=== PATIENT | female | born 1950 | race Caucasian/White ===

== ENCOUNTER 2016-09-04 08:00 | Outpatient (CLI) | payer MEDICARE | END 2016-09-04 08:01 | disposition home or self-care (01) | DX: R73.01 Impaired fasting glucose (principal); E78.5 Hyperlipidemia, unspecified ==

== ENCOUNTER 2016-12-02 17:06 | Outpatient (CLI) | payer MEDICARE ==
--- NOTE | 2016-12-03 09:50 | Ultrasound Report ---
LIMITED AORTA DUPLEX: 12/02/2016 CLINICAL INDICATION: Aneurysm. COMPARISON: CT 03/31/2016. TECHNIQUE: Real-time sonographic vascular imaging was performed by the green chain offbearer through the aorta utilizing both color-flow and Doppler spectral analysis. Multiple loss prevention representative static images were saved for review. FINDINGS: The abdominal aorta measures 2.3 cm proximally, and 1.9 cm in the mid portion. Distal ane urysmal dilatation is present, measuring 3.5 x 3.2 cm, slightly increased from CT of 03/31/2016. No free fluid is present. Velocities are normal. IMPRESSION: SLIGHT INTERVAL INCREASE IN SIZE OF DISTAL ABDOMINAL AORTIC ANEURYSM, NOW MEASURING 3.5 X 3.2 CM. JOB #: [id number] EXT JOB #:[id number]
== END 2016-12-02 17:07 | disposition home or self-care (01) ==
LOC: DI 17:06
PROVIDERS: ATTEND Family Medicine
DX: I71.4 Abdominal aortic aneurysm, without rupture (principal)
CPT/HCPCS: 93979

== ENCOUNTER 2016-12-05 13:11 | Outpatient (CLI) | payer MEDICARE ==
--- NOTE | 2016-12-05 17:04 | Ultrasound Report ---
EXAM: BILATERAL LOWER EXTREMITY VENOUS ULTRASOUND EXAM DATE: 12/05/2016 02:54 p.m. CLINICAL HISTORY: Dependent edema, legs bilateral, calf pain. COMPARISON: 12/03/2012. TECHNIQUE: Real-time sonographic vascular imaging was performed by the bi tester through the lower extremities utilizing both color-flow and Doppler spectral analysis. Multiple software support representative static i mages were saved for review. FINDINGS: Right: Common Femoral Vein (CFV): Normal. CFV-GSV Junction: Normal. Profunda Femoral Vein (PFV): Normal. Femoral Vein (FV) Prox: Normal. Femoral Vein (FV) Mid: Normal. Femoral Vein (FV) Dist: Normal. Popliteal Vein: Normal. Posterior Tibial Veins: Normal. Peroneal Veins: Normal. Left: Common Femoral Vein (CFV): Normal. CFV-GSV Junction: Normal. Profunda Femoral Vein (PFV): Normal. Femoral Vein (FV) Prox: Normal. Femoral Vein (FV) Mid: Normal. Femoral Vein (FV) Dist: Normal. Popliteal Vein: Normal. Posterior Tibial Veins: Normal. Peroneal Veins: Normal. Other: None. IMPRESSION: No evidence for lower extremity deep venous thrombosis bilaterally. [facility] Referring Provider Line: [phone] SITE ID: [id number]
== END 2016-12-05 13:12 | disposition home or self-care (01) ==
LOC: DI 13:11
PROVIDERS: ATTEND Family Medicine
DX: R60.0 Localized edema (principal); M79.661 Pain in right lower leg
CPT/HCPCS: 93970

== ENCOUNTER 2017-07-30 08:00 | Outpatient (CLI) | payer MEDICARE ==
[2017-07-30 19:07] LABS: BASOPHILS % (AUTO) 0.3 %; EOSINOPHILS # (AUTO) 0.3 10^3/uL (0.0-0.7); EOSINOPHILS % (AUTO) 2.7 %; HGB - HEMOGLOBIN 14.6 g/dL (12.0-16.0); LYMPHOCYTES # (AUTO) 3.5 10^3/uL (1.5-3.5); LYMPHOCYTES % (AUTO) 31.9 %; MEAN CORPUSCULAR HEMOGLOBIN 29.8 pg (27.0-31.0); MEAN CORPUSCULAR HGB CONC 32.9 g/dL (32.0-36.0); MEAN CORPUSCULAR VOLUME 90.6 fL (81.0-99.0); MEAN PLATELET VOLUME 8.9 fL (7.9-10.8); MONOCYTES # (AUTO) 0.6 10^3/uL (0.0-1.0); MONOCYTES % (AUTO) 5.9 %; NEUTROPHILS # (AUTO) 6.4 10^3/uL (1.5-6.6); NEUTROPHILS % (AUTO) 59.2 %; PLT - PLATELET COUNT 243 10^3/uL (130-450); RED CELL DISTRIBUTION WIDTH 14.7 % (12.0-15.0); WHITE BLOOD COUNT 10.8 x10^3/uL (4.8-10.8)
[2017-07-30 19:29] LABS: ALBUMIN 4.1 g/dL (3.2-5.5); ALBUMIN/GLOBULIN RATIO 1.3 (1.0-2.2); ALKALINE PHOSPHATASE 62 IU/L (42-121); ALT ALANINE AMINOTRANSFERASE 14 IU/L (10-60); AST ASPARTATE AMINOTRANSFERASE 20 IU/L (10-42); BILIRUBIN,TOTAL 0.4 mg/dL (0.2-1.0); BUN - BLOOD UREA NITROGEN 15 mg/dL (6-20); CALCIUM 8.9 mg/dL (8.5-10.3); CARBON DIOXIDE - CO2 23 mmol/L (21-32); CHLORIDE 105 mmol/L (101-111); CHOL/HDL RATIO 6.5 (<4.4); CHOLESTEROL 293 mg/dL; CREATININE 0.7 mg/dL (0.4-1.0); GFR - MDRD 84 (>89); GLUCOSE 119 mg/dL (70-100); HDL CHOLESTEROL 45 mg/dL; LDL CHOLESTEROL,CALCULATED 172 mg/dL; LDL/HDL RATIO 3.8 (<4.4); SODIUM 138 mmol/L (135-145); TOTAL PROTEIN 7.3 g/dL (6.7-8.2); VLDL CHOLESTEROL 76 mg/dL
[2017-07-30 20:14] LABS: HB2 TOTAL 16.1 g/dL; HEMOGLOBIN A1C 0.68 g/dL
== END 2017-07-30 08:01 | disposition home or self-care (01) ==
LOC: LAB.N 08:00
PROVIDERS: ATTEND Family Medicine
DX: F33.0 Major depressive disorder, recurrent, mild (principal); R73.01 Impaired fasting glucose; E78.1 Pure hyperglyceridemia
CPT/HCPCS: 36415; 80053; 80061; 83036; 83721; 85025

== ENCOUNTER 2017-12-22 18:46 | Outpatient (CLI) | payer MEDICARE ==
--- NOTE | 2017-12-23 10:41 | Ultrasound Report ---
Procedure Date: 12/22/2017 Accession Number: [id number] / [id number] Procedure: US - Duplex Aorta Limited CPT Code: FULL RESULT: EXAM: Duplex Aorta Limited DATE: 12/22/2017 7:22 PM CLINICAL HISTORY: ABDOMINAL AORTIC ANEURYSM,WITHOUT RUPTURE COMPARISON: None. TECHNIQUE: Grayscale, spectral Doppler, and color Doppler images of the abdominal aorta were obtained. FINDINGS: The upper abdominal aorta measures up to 2.8 cm, normal. Normal arterial waveform is seen in the abdominal aorta by spectral Doppler which is also patent by color Doppler. Peak systolic velocity by spectral Doppler is 113 cm/s in the mid aorta. The mid aorta measures up to 2.7 cm in transverse dimension by 2 cm in AP dimension. The previously identified fusiform infrarenal aortic aneurysm without involvement of the iliac arteries now measures 3.3 x 3.3 cm (previously 3.5 x 3.2 cm), unchanged when accounting for differences in technique. The right and left iliac arteries measure up to 0.6 and 0.7 cm in AP dimension respectively, normal. IMPRESSION: Stable infrarenal aortic aneurysm measuring up to 3.3 cm on today's exam. [facility]
== END 2017-12-22 18:47 | disposition home or self-care (01) ==
LOC: DI 18:46
PROVIDERS: ATTEND Family Medicine
DX: I71.4 Abdominal aortic aneurysm, without rupture (principal)
CPT/HCPCS: 93979

== ENCOUNTER 2018-03-29 14:38 | Outpatient (CLI) | payer MEDICARE ==
--- NOTE | 2018-03-30 12:28 | XRAY Report ---
Reason: lumbago Procedure Date: 03/29/2018 Accession Number: [id number] / [id number] Procedure: XRN - Lumbar Spine 2 View CPT Code: FULL RESULT: EXAM: LUMBOSACRAL SPINE RADIOGRAPHY EXAM DATE: 03/29/2018 03:02 PM. CLINICAL HISTORY: Lumbago. COMPARISONS: LUMBAR SPINE 09/28/2008 1:44 PM LUMBAR SPINE 09/04/2008 12:55 PM. TECHNIQUE: 3 views. FINDINGS: Alignment: There is mild dextroconvex scoliosis centered about L3. There are 2 mm of anterolisthesis of L3 on L4. Bones: Five dsw-kxj-qwezdci lumbar vertebral bodies are present. No fractures or bone lesions. Disks: Normal. Disk heights are maintained. Facets: At least moderate facet arthropathy is seen from L2-L5. Sacroiliac Joints: Unremarkable. Soft Tissues: Normal. The visualized bowel gas pattern is normal. IMPRESSION: Facet predominant arthropathy and mild scoliosis as described. Accounting for differences in modality, degenerative changes have progressed compared to 2008. [facility]
== END 2018-03-29 14:39 | disposition home or self-care (01) ==
LOC: DI.N 14:38
PROVIDERS: ATTEND Family Medicine
DX: M47.816 Spondylosis without myelopathy or radiculopathy, lumbar region (principal); M41.86 Other forms of scoliosis, lumbar region
CPT/HCPCS: 72100

== ENCOUNTER 2018-05-30 13:11 | Outpatient (CLI) | payer MEDICARE ==
--- NOTE | 2018-05-30 14:30 | XRAY Report ---
Reason: KNEE PAIN, RIGHT Procedure Date: 05/30/2018 Accession Number: [id number] / [id number] Procedure: XR - Knee 3 View RT CPT Code: FULL RESULT: EXAM: RIGHT KNEE RADIOGRAPHY EXAM DATE: 05/30/2018 01:29 PM. CLINICAL HISTORY: Right knee pain. COMPARISON: None. TECHNIQUE: 3 views. FINDINGS: There are remote posttraumatic changes with resulting tricompartmental degenerative changes, most pronounced in the lateral femorotibial compartments. There is no significant joint effusion. No fracture or dislocation is identified. IMPRESSION: Chronic degenerative changes, posttraumatic in appearance. [facility]
== END 2018-05-30 13:12 | disposition home or self-care (01) ==
LOC: DI 13:11
PROVIDERS: ATTEND Family Medicine
DX: M17.31 Unilateral post-traumatic osteoarthritis, right knee (principal)

== ENCOUNTER 2018-10-24 14:28 | Outpatient (CLI) | payer MEDICARE | END 2018-10-24 14:29 | disposition critical access hospital (66) | LOC: EMS 14:28 | PROVIDERS: ATTEND Surgery | DX: M25.522 Pain in left elbow (principal); W01.0XXA Fall on same level from slipping, tripping and stumbling without subsequent striking against object, initial encounter; Y93.01 Activity, walking, marching and hiking; Y92.481 Parking lot as the place of occurrence of the external cause | CPT/HCPCS: A0425; A0429 ==

== ENCOUNTER 2018-10-24 14:45 | Emergency (ER) | payer MEDICARE ==
[2018-10-24 14:51] VITALS: BP 142/70
--- NOTE | 2018-10-24 14:52 | ED Physician Documentation ---
PD HPI Fall - Stated complaint Stated Complaint: GLF - History obtained from History obtained from: Patient - History of Present Illness Mechanism of injury: Lost balance Fall distance: Standing position Where injury occurred: Other (Parking lot of [facility]) Timing - onset: Today (Just prior to arrival) Injury(ies) location: Left Uppper Extremity (Elbow) Pain level now: 10 Associated symptoms: No: LOC, Neck pain Symptoms improve with: Nothing Similar symptoms before: Has not had sx before Recently seen: Not recently seen - Additional information Additional information: Patient was getting into her car at [facility] when she lost her balance and fell landing on the left elbow. She hit her head but she did not pass out. There is no open injury. She landed on her left hip but she does not have any significant hip pain when ambulating. No prior injury to the elbow. No numbness or tingling down into the fingers. 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 - Present Medications Home Medications: Ambulatory Orders Medication Instructions Recorded Confirmed Atorvastatin [Lipitor] 40 mg PO QPM 03/31/16 04/01/16 Calcium Carbonate [Calcium] 500 mg PO DAILY 04/01/16 04/01/16 Cholecalciferol (Vitamin D3) 1,000 units PO DAILY 04/01/16 04/01/16 [Vitamin D3] Pantoprazole [Protonix] 40 mg PO BID #60 tablet 04/01/16 Sucralfate 1 gm PO ACHS #120 tablet 04/01/16 Oxycodone HCl/Acetaminophen 1 each PO Q4HR #20 tablet 10/24/18 [Oxycodone-Acetaminophen 5-325] - Allergies Allergies/Adverse Reactions: Allergies Allergy/AdvReac Type Severity Reaction Status Date / Time codeine [Codeine] Allergy Hives Verified 10/24/18 14:51 - Social History Does the pt smoke?: Yes Smoking Status: Former smoker Does the pt drink ETOH?: No Does the pt have substance abuse?: No PD ED PE NORMAL - Vitals Vital signs reviewed: Yes - General General: Alert and oriented X 3, No acute distress, Well developed/nourished - Cardiac Cardiac: RRR - Respiratory Respiratory: No respiratory distress - Extremities Extremities: Other (The left elbow is in a vacuum splint per EMS. This was removed. There is no open wound but there is some bruising over the proximal forearm. She has a 2+ radial pulse she is able to wiggle her fingers sensations intact light touch and capillary refill is less than 2 seconds. 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 This was discussed with the orthopedist. She will be placed in a long-arm posterior splint and referred to his office for further management. She was given an oxycodone tablet here for pain. Will be discharged with a prescription for oxycodone, splint instructions, plans for elevate and ice until follow-up with the orthopedist. Departure - Departure Disposition: 01 Home, Self Care Clinical Impression: Radial head fracture, closed Qualifiers: Encounter type: initial encounter Fracture alignment: displaced Laterality: left Qualified Code(s): S52.122A - Displaced fracture of head of left radius, initial encounter for closed fracture Condition: Good Instructions: ED Fx Radial Head, ED Splint Care Fiberglass Follow-Up: Calderon Reed MD [Provider Admit Priv/Credential] - Within 3 Days (Keep the appointment as scheduled for follow-up.) Prescriptions: Oxycodone HCl/Acetaminophen [Oxycodone-Acetaminophen 5-325] 1 each PO Q4HR #20 tablet Comments: Keep the splint on, keep it clean and dry. May ice the elbow through the splint just do not get it wet. Take the oxycodone if needed for pain but do not drive or operate machinery if taking that medication. Return if you have numbness, increasing pain into the fingers, delayed capillary refill or other problems arise. Keep the appointment with the orthopedist that was scheduled for you.
[2018-10-24] MEDS ORDERED: oxyCODONE 5 MG TABLET PO STA (14:58)
--- NOTE | 2018-10-24 16:04 | XRAY Report ---
Reason: fall,pain Procedure Date: 10/24/2018 Accession Number: [id number] / [id number] Procedure: XR - Elbow 3 View LT CPT Code: FULL RESULT: EXAM: LEFT ELBOW RADIOGRAPHY EXAM DATE: 10/24/2018 03:01 PM. CLINICAL HISTORY: Ground level fall on elbow, pain. Limited range of motion. COMPARISON: XR ELBOW COMPLETE 11/30/2007 10:41 AM. TECHNIQUE: 3 views. FINDINGS: The study is limited by inability to obtain conventional positioning. Bones: There is a comminuted fracture of the radial head. No definite other fracture pattern was identified; sensitivity is somewhat limited. Joints: There is an expected joint effusion. Soft Tissues: Normal. No soft tissue swelling. IMPRESSION: Comminuted radial head fracture. CRITICAL RESULT: The findings were discussed with Dr. Yang on 10/24/2018 at approximally 4 PM. [facility]
== END 2018-10-24 18:00 | disposition home or self-care (01) ==
LOC: EDUNIT# → ED 14:45
DX: S52.122A Displaced fracture of head of left radius, initial encounter for closed fracture (principal); W18.39XA Other fall on same level, initial encounter; Y93.89 Activity, other specified; Y92.512 Supermarket, store or market as the place of occurrence of the external cause; Y92.481 Parking lot as the place of occurrence of the external cause; E11.9 Type 2 diabetes mellitus without complications; Z87.891 Personal history of nicotine dependence
CPT/HCPCS: 73080; 99283; A9270

== ENCOUNTER 2018-10-31 14:19 | Outpatient (CLI) | payer MEDICARE | END 2018-10-31 23:59 | disposition home or self-care (01) | LOC: RT.N 14:19 | PROVIDERS: ATTEND Physician Assistant Medical | DX: Z01.810 Encounter for preprocedural cardiovascular examination (principal) | CPT/HCPCS: 93005 ==

== ENCOUNTER 2018-11-02 08:00 | Outpatient (CLI) | payer MEDICARE ==
[2018-11-02 19:00] LABS: BASOPHILS # (AUTO) 0.1 10^3/uL (0.0-0.1); BASOPHILS % (AUTO) 0.5 %; EOSINOPHILS # (AUTO) 0.3 10^3/uL (0.0-0.7); EOSINOPHILS % (AUTO) 2.6 %; HGB - HEMOGLOBIN 13.7 g/dL (12.0-16.0); LYMPHOCYTES # (AUTO) 3.5 10^3/uL (1.5-3.5); LYMPHOCYTES % (AUTO) 29.3 %; MEAN CORPUSCULAR HEMOGLOBIN 29.4 pg (27.0-31.0); MEAN CORPUSCULAR HGB CONC 32.3 g/dL (32.0-36.0); MEAN PLATELET VOLUME 9.3 fL (7.9-10.8); MONOCYTES # (AUTO) 0.9 10^3/uL (0.0-1.0); MONOCYTES % (AUTO) 7.1 %; NEUTROPHILS # (AUTO) 7.3 10^3/uL (1.5-6.6); NEUTROPHILS % (AUTO) 60.5 %; PLT - PLATELET COUNT 265 10^3/uL (130-450); RED BLOOD COUNT 4.68 10^6/uL (4.20-5.40); RED CELL DISTRIBUTION WIDTH 14.6 % (12.0-15.0)
[2018-11-02 19:04] LABS: CALCIUM 8.8 mg/dL (8.5-10.3); CREATININE 0.6 mg/dL (0.4-1.0)
== END 2018-11-02 23:59 | disposition home or self-care (01) ==
LOC: LAB.N 08:00
PROVIDERS: ATTEND Physician Assistant Medical
DX: E78.2 Mixed hyperlipidemia (principal); Z01.818 Encounter for other preprocedural examination; E66.9 Obesity, unspecified; I71.4 Abdominal aortic aneurysm, without rupture
CPT/HCPCS: 36415; 80048; 85025

== ENCOUNTER 2018-11-03 10:46 | Outpatient (CLI) | payer MEDICARE ==
--- NOTE | 2018-11-03 12:01 | CT Report ---
Reason: DISPLACED FRACTURE OF HEAD OF LEFT RADIUS,INITIAL Procedure Date: 11/03/2018 Accession Number: [id number] / [id number] Procedure: CT - UPPER EXTREMITY WO - LT CPT Code: FULL RESULT: EXAM: LEFT ELBOW CT WITHOUT CONTRAST EXAM DATE: 11/03/2018 11:28 AM. CLINICAL HISTORY: Follow-up complex left radial head fracture. COMPARISON: ELBOW 3 VIEW LT 10/27/2018 2:25 PM. TECHNIQUE: Thin-section axial images were acquired of the elbow without contrast. Post-processing: Coronal and sagittal reformats. Other: None. In accordance with CT protocol optimization, one or more of the following dose reduction techniques were utilized for this exam: automated exposure control, adjustment of mA and/or KV based on patient size, or use of iterative reconstructive technique. FINDINGS: Bones: There is a small minimally displaced avulsion fracture from the coronoid process of the proximal ulna seen best on sagittal MPR images, for example image 31. Otherwise no evidence of ulnar fracture. The primary finding is a markedly comminuted fracture of the radial head with impaction at the fracture site. There is an approximate 20 mm maximal diameter avulsed fragment displaced superiorly from the radial head seen best on sagittal MPR images. On coronal image 145 and sagittal image 36, there is a small sliver of bony fragment in the superior posterior joint space, probably representing loose intra-articular bone fragment from the radial head fracture. Joints: See above Musculature: Normal. No fatty atrophy. Other: None. IMPRESSION: 1. Severely comminuted, depressed and impacted fracture of the radial head. There is a dominant 20 mm maximal diameter posterior avulsed fragment as described above. 2. Minimally displaced ulnar coronoid process avulsion fracture. 3. Small sliver of presumed intra-articular bone fragment in the posterior superior joint space. [facility]
== END 2018-11-03 10:47 | disposition home or self-care (01) ==
LOC: DI 10:46
PROVIDERS: ATTEND Orthopaedic Surgery Sports Medicine
DX: S52.122A Displaced fracture of head of left radius, initial encounter for closed fracture (principal); S52.042A Displaced fracture of coronoid process of left ulna, initial encounter for closed fracture

== ENCOUNTER 2018-11-09 07:21 | Day surgery (SDC) | payer MEDICARE ==
[2018-11-09] MEDS ORDERED: LACTATED RINGERS 1,000 ML IV ONE ×2 (07:35→11:59)
[2018-11-09] MEDS ORDERED: fentaNYL 100 MCG/2 ML VIAL IVP ONE (07:50)
[2018-11-09] MEDS ORDERED: PROPOFOL 200 MG/20 ML VIAL IVP ONE (07:50)
[2018-11-09] MEDS ORDERED: GLYCOPYRROLATE 1 MG/5 ML VIAL IVP ONE (07:50)
[2018-11-09] MEDS ORDERED: ROCURONIUM 50 MG/5 ML VIAL IVP ONE (07:50)
[2018-11-09] MEDS ORDERED: ROPIVACAINE 0.5% PF 20 ML AMPULE EP ONE (07:50)
[2018-11-09] MEDS ORDERED: DEXAMETHASONE 4 MG/ML VIAL IVP ONE (07:50)
[2018-11-09] MEDS ORDERED: ONDANSETRON 4 MG/2 ML VIAL IVP ONE (07:50)
[2018-11-09] MEDS ORDERED: KETOROLAC 30 MG/ML VIAL IVP ONE (07:50)
[2018-11-09] MEDS ORDERED: MIDAZOLAM 2 MG/2 ML VIAL IVP ONE (07:50)
[2018-11-09] MEDS ORDERED: NEOSTIGMINE 1 MG/1 ML 10 ML MDV IVP ONE (07:50)
--- NOTE | 2018-11-09 08:08 | ANESTHESIA ---
Pre-Anesthesia VS, & Labs - Diagnosis L radial head and coronid fx - Procedure L ORIF Radial head vs replacement, poss Coronoid ORIF, poss ligament repair Vital Signs: Temp Pulse Resp BP Pulse Ox 36.9 C 84 16 135/70 H 96 11/09/18 07:35 11/09/18 07:35 11/09/18 07:35 11/09/18 07:35 11/09/18 07:35 Height 5 ft 5 in Weight (kg) 122.9 kg Body Mass Index 46.5 - NPO >8 hours - Is Patient ?: No - Lab Results Lab results reviewed: Yes Home Medications and Allergies Home Medications: Ambulatory Orders Venlafaxine HCl [Venlafaxine HCl ER] 150 mg PO DAILY 11/08/18 Atorvastatin [Lipitor] 40 mg PO QPM 03/31/16 Venlafaxine HCl [Venlafaxine HCl ER] 150 mg PO DAILY 11/08/18 Allergies/Adverse Reactions: Allergies Allergy/AdvReac Type Severity Reaction Status Date / Time codeine [Codeine] Allergy Hives Verified 10/24/18 14:51 Anes History & Medical History - Anesthetic History Anesthesia Complications: reports: No previous complications Family history of Anesthesia Complications: Denies Family history of Malignant Hyperthermia: Denies - Medical History Cardiovascular: reports: High cholesterol, Deep vein thrombosis, Other Pulmonary: reports: None Gastrointestinal: reports: Ulcers Urinary: reports: None Musculoskeletal: reports: Osteoarthritis Endocrine/Autoimmune: reports: None Blood Disorders: reports: None Skin: reports: None Smoking Status: Former smoker - Surgical History General: Bowel surgery, Gastric surgery, Colonoscopy Eyes Ears Nose Throat (EENT): Tonsil/Adenoidectomy Gynecologic: Hysterectomy Orthopedic: Spine surgery Exam General: Alert, Oriented x3 Dental: Loose/Frag Mouth Openin Fingerbreadth Neck Mobility: Normal Mallampati classification: II Thyromental Distance: 4-6 cm Respiratory: Lungs clear, Normal breath sounds Cardiovascular: Regular rate Neurological: Normal speech Mental/Cognitive Status: Alert/Oriented X3, Normal for patient Cognitive Status: Within normal limits Plan Anesthesia Type: General, Supraclavicular Block (possible) Regional Block: Per Surgeon's request for Post Op pain control (will discuss pre-op) Consent for Procedure(s) Verified and Reviewed: Yes Code Status: Attempt Resuscitation ASA classification: 2-Mild systemic disease Is this case an emergency?: No
[2018-11-09] MEDS ORDERED: CEFAZOLIN SODIUM IN 0.9 % NACL 2 GM/100 ML BAG IV ONE (08:22)
[2018-11-09] MEDS ORDERED: ONDANSETRON 4 MG/2 ML VIAL IVP PRN (11:32)
[2018-11-09] MEDS ORDERED: oxyCODONE 5 MG TABLET PO PRN (11:32)
--- NOTE | 2018-11-09 11:39 | IMMEDIATE POSTOPERATIVE NOTE ---
Immediate Postoperative Note - Procedure Note Procedure Date: 11/09/18 Pre-Op Diagnosis: Left radial head fracture, coronoid fracture, ligament sprain Procedure: Left radial head replacement, removal loose bodies osteocartilaginous Post-Op Diagnosis: Same Primary Surgeon: Polo Reed Back Hand: None Anesthesia Type: General LMA, Regional block Complications: No complications Estimated Blood Loss (in cc): 25 Plan of Care: Left upper extremity remains in splint clean dry and intact in sling. Elbow elevated at rest. Encouraged hand and wrist motion. Nonweightbearing left upper extremity. Perioperative antibiotic 24 hours. Preoperative analgesic medication and [id number] stool softener as needed. Follow-up 10 to 14 days or sooner as needed orthopedic clinic.
[2018-11-09 12:53] VITALS: BP 120/64
--- NOTE | 2018-11-09 14:25 | XRAY Report ---
Reason: ORIF LEFTRADIAL HEAD FRACUTE AND CORNOID FRACTURE Procedure Date: 11/09/2018 Accession Number: [id number] / [id number] Procedure: FL - OR C-Arm Procedure CPT Code: FULL RESULT: EXAM: FLUOROSCOPIC GUIDANCE EXAM DATE: 11/09/2018 10:52 AM. CLINICAL HISTORY: ORIF left radial head fracture and cornoid fracture. COMPARISON: OR C-ARM PROCEDURE 11/09/2018 10:27 AM. ELBOW 3 VIEW LT 11/09/2018 10:27 AM. FINDINGS: What appears to be a radial hemiarthroplasty prosthesis is seen on 5 fluoroscopic capture images inserted into the proximal shaft of the radius. IMPRESSION: Fluoroscopic guidance provided for elbow arthroplasty. Total fluoroscopy time: 0.3 minutes. Number of images: 6. [facility]
--- NOTE | 2018-11-09 14:25 | XRAY Report ---
Reason: ORIF LEFT ELBOW IMPLANTS Procedure Date: 11/09/2018 Accession Number: [id number] / [id number] Procedure: XR - Elbow 3 View LT CPT Code: FULL RESULT: EXAM: FLUOROSCOPIC GUIDANCE EXAM DATE: 11/09/2018 10:52 AM. CLINICAL HISTORY: ORIF left radial head fracture and cornoid fracture. COMPARISON: OR C-ARM PROCEDURE 11/09/2018 10:27 AM. ELBOW 3 VIEW LT 11/09/2018 10:27 AM. FINDINGS: What appears to be a radial hemiarthroplasty prosthesis is seen on 5 fluoroscopic capture images inserted into the proximal shaft of the radius. IMPRESSION: Fluoroscopic guidance provided for elbow arthroplasty. Total fluoroscopy time: 0.3 minutes. Number of images: 6. [facility]
--- NOTE | 2018-11-10 08:09 | OPERATIVE REPORT ---
DATE OF SERVICE: 11/09/2018 Physician: Calderon Reed MD SURGEON: Calderon Reed MD ANESTHESIA PROVIDER: Fidel Collado CRNA. ANESTHESIA: Left side regional block under ultrasound guidance as well as general anesthesia. FLUIDS: Please see nursing report. TOURNIQUET TIME: 115 minutes at 250 mmHg. ESTIMATED BLOOD LOSS: Less than 25 mL COMPRESSION DEVICE: Bilateral calf SCD boots. PREOPERATIVE ANTIBIOTICS: Weight-based IV Ancef 2 grams. ORTHOPEDIC IMPLANTS: Biomet radial head implants including size 8 stem, size 22 x 10 radial head with associated screw. PREOPERATIVE DIAGNOSES 1. Left comminuted radial head fracture. 2. Left elbow coronoid fracture. 3. Left elbow ligamentous sprain. POSTOPERATIVE DIAGNOSES 1. Left comminuted radial head fracture. 2. Left elbow coronoid fracture. 3. Left elbow ligamentous sprain. HISTORY OF PRESENT ILLNESS AND INDICATIONS: Patient is a 68-year-old female who sustained an injury to her left elbow and was indicated for operative treatment. Please see previous clinic discussion for risks, benefits and alternatives reviewed. We highlighted risks, benefits, alternatives in the preoperative care unit. Her questions are answered. She verbalizes her wish to proceed with operative treatment. Informed consent is again given. INTRAOPERATIVE FINDINGS: Patient was noted to have a comminuted radial head fracture, not amenable to repair with greater than 3 pieces. There is significant comminution and deformity. The lateral ligamentous complex remains attached. The coronoid fracture is noted to be nearly anatomically reduced under direct visualization. Post-implantation and trialing with the final size, the elbow shows extension to 180 degrees, flexion greater than 130, with pronation and supination 80 to 90 degrees with smooth range of motion and location of the radial head. There is no significant noted varus or valgus instability. Intraoperative radiographic findings comparing size 20 versus size 22 head show that the contour of the smaller head does not line up with the capitellum, and it appears somewhat more ulnarly positioned secondary to the decreased size, it shows same range of motion. PROCEDURE: On 11/09/2018, patient is identified in the preoperative care unit. She identifies her left elbow as the operative site. The area is signed. Patient received preoperative weight-based IV antibiotics. She is brought to the operating room. General anesthesia is administered after previous ultrasound-guided left upper extremity regional block. The patient is placed supine on the operating table. Head and neck and extremities are placed in anatomically comfortable and safe positions to avoid peripheral nerve stretch and compression. Patient's left upper extremity then has a well-padded tourniquet placed high on the left arm. Patient's left elbow is shaved and then pre-scrubbed with Hibiclens solution followed by alcohol, and then prepped with ChloraPrep solution and draped appropriately. At this point, surgical pause identified the left elbow as the operative site. At this point, an Esmarch bandage was used to exsanguinate the limb and then an anterolateral approach was used. Skin incision is made, spreading dissection carried out to the extensor musculature, interval is identified and split, and the extensor musculature is from the underlying ligamentous structures. The posterolateral structures were left intact as they remained attached to the lateral epicondyle. At this point, once the annular ligament is identified and the forearm is pronated to avoid injury to adjacent nerve structures, the annular ligament is tagged and then incised, thereby further revealing the joint and the comminuted radial head fracture. At this point, the radial head fracture fragments are identified and noted to be not amenable to repair, given the small comminuted pieces. There were 3 major pieces, then multiple intervening smaller pieces. These were reconstructed at the back table and sized, loose bodies are removed under direct visualization in the joint. The capitellum is identified and noted to have minimal cartilage injury. Coronoid process is noted to be nearly anatomically reduced from this vantage point, and there was concentric ulnohumeral articulation. At this point, the elbow is extended, as there is expected to be posterior comminuted piece. This area is copiously irrigated and examined and reexamined and noted to be free of any loose bodies under some direct visualization, as well as palpation after multiple rounds of copious irrigation. At this point, the height of the removed head fragments are measured, and the proximal aspect of the radius is rongeured to make this flat and have the appropriate resection, which ultimately is approximately 14. Please see further discussion regarding resection and seating of implant. At this point, the joint is copiously irrigated, trial implants are placed, and it is noted that the 22 x 10 is appropriate; it is noted that the size 8 sits approximately 1-2 mm proud as the size 8 brotyesha previously worked up to from a small size seated about 2 mm proud. The 7 mm broach was not found to be adequate, or with appropriate purchase. After selection of these implants, the wound is copiously irrigated, reexamined, and noted to be free of loose bodies, at which point the final stem is impacted into place. It is seated nicely and has good control of the radius, and then the head is placed, and the fixation screw is attached per protocol. The joint is reduced and examined and noted to have good range of motion and stability. Please see operative findings. Of note, the radial head sits nicely in the proximal radial ulnar joint, it does not appear to be overstuffed. The stem sits about 1 to 2 mm proud as expected and has good fixation. After repeat copious irrigation, the annular ligament is repaired using heavy Vicryl suture, as is the [id number] split adjacent to this. Again, care is taken to pronate the forearm during this portion. At this point, the extensor mechanism is closed using #2 FiberWire suture, and the elbow is again ranged and noted to be with good range of motion and stability. At this point, the wound is copiously irrigated again and the skin is closed in layered fashion using 0 Vicryl, 2-0 Vicryl, and interrupted nylon suture. Skin is washed, dried, Xeroform dressing is applied. Dry sterile dressing is applied. Sof-Rol is applied. Patient is placed in a posterior plaster splint at 90 degrees with the forearm in neutral with a side slab. Patient is placed in a sling. Patient tolerated the procedure well. Instrument and sponge counts were correct. Patient is transferred to recovery room in stable condition. Patient will follow postoperative radial head replacement protocol. She would be nonweightbearing on the left upper extremity, she would be in a splint. She will follow up in 10 to 14 days, or sooner on an as-needed basis. She would avoid weightbearing resistance and exertion. She would elevate and ice at rest. She would work on wrist and hand motion. She is given a prescription for perioperative antibiotics, perioperative analgesia medications. She is encouraged to take bowel regimen medication while on narcotic analgesics. She will notify us prior to followup visit should problems or questions arise. Patient declined offer to discuss with family her friend, though a friend grease rack worker was to pick her up and bring her home from the hospital. PROCEDURES 1. Left radial head replacement. 2. Left elbow removal of loose bodies. TD: 11/10/2018 07:34 KERRY
== END 2018-11-09 07:22 | disposition home or self-care (01) ==
LOC: SDS 07:21
PROVIDERS: ATTEND Orthopaedic Surgery Sports Medicine
PROC: 0PRJ0JZ Replacement of Left Radius with Synthetic Substitute, Open Approach (ICD-10-PCS; principal; 2018-11-09 08:30)
DX: S52.122D Displaced fracture of head of left radius, subsequent encounter for closed fracture with routine healing (principal); S52.042D Displaced fracture of coronoid process of left ulna, subsequent encounter for closed fracture with routine healing; X58.XXXD Exposure to other specified factors, subsequent encounter; E78.00 Pure hypercholesterolemia, unspecified; M19.90 Unspecified osteoarthritis, unspecified site; E66.9 Obesity, unspecified; Z68.42 Body mass index [BMI] 45.0-49.9, adult; Z87.891 Personal history of nicotine dependence; Z86.718 Personal history of other venous thrombosis and embolism
CPT/HCPCS: 24366; 73080; C1776; J0690; J7120

== ENCOUNTER 2019-03-02 09:18 | Outpatient (CLI) | payer MEDICARE, MEDICAID ==
--- NOTE | 2019-03-03 14:58 | Ultrasound Report ---
Reason: AAA Procedure Date: 03/02/2019 Accession Number: [id number] / [id number] Procedure: US - Retroperitoneal Limited CPT Code: FULL RESULT: EXAM: AORTIC DOPPLER ULTRASOUND EXAM DATE: 03/02/2019 10:23 AM. CLINICAL HISTORY: Follow-up abdominal aortic aneurysm. COMPARISON: DUPLEX AORTA LIMITED 12/22/2017 6:58 PM. TECHNIQUE: Real-time sonographic imaging of retroperitoneal vascular structures, including color-flow, Doppler flow and spectral analysis was performed by the facilities maintenance technician. Multiple inbound customer service representative static images were saved for review. FINDINGS: Aorta: The abdominal aorta was adequately visualized. No evidence for abdominal aortic aneurysm. Mild to moderate arthroscopic plaque present but no visible significant stenosis. Proximal: 2.5 cm. Previously 2.8 m. Mid: 2.2 cm. Previously 2.7 cm. Distal: 3.5 cm. Previously 3.3 cm. Iliac Vessels: The iliac vessels were not adequately visualized. Other: No free fluid. IMPRESSION: 1. Mild aneurysmal dilatation of the distal abdominal aorta measuring up to 3.5 cm, similar to prior exam. 2. Iliac vessels could not be adequately visualized due to body habitus. RADIA
== END 2019-03-02 09:19 | disposition home or self-care (01) ==
LOC: DI 09:18
PROVIDERS: ATTEND Physician Assistant Medical
DX: I71.4 Abdominal aortic aneurysm, without rupture (principal)
CPT/HCPCS: 76775

== ENCOUNTER 2019-04-10 14:11 | Outpatient (CLI) | payer MEDICARE, MEDICAID ==
[2019-04-10 19:05] LABS: CHOL/HDL RATIO 4.6 (<4.4); CHOLESTEROL 218 mg/dL; HDL CHOLESTEROL 47 mg/dL; LDL CHOLESTEROL,CALCULATED 115 mg/dL; LDL/HDL RATIO 2.4 (<4.4); VLDL CHOLESTEROL 56 mg/dL
== END 2019-04-10 23:59 | disposition home or self-care (01) ==
LOC: LAB.N 14:11
PROVIDERS: ATTEND Physician Assistant Medical
DX: E78.2 Mixed hyperlipidemia (principal); E78.6 Lipoprotein deficiency
CPT/HCPCS: 36415; 80061; 83721

== ENCOUNTER 2019-04-17 12:31 | Outpatient (CLI) | payer MEDICARE, MEDICAID ==
--- NOTE | 2019-04-17 14:05 | Mammography Report ---
Reason: ROUTINE MAMMO Procedure Date: 04/17/2019 Accession Number: [id number] / [id number] Procedure: MGN - Screening Mammo Dig Bilat CPT Code: Final Report FULL RESULT: EXAM: Screening Mammo Dig Bilat DATE: 04/17/2019 12:57 PM CLINICAL HISTORY: The patient is an asymptomatic 68-year-old female for screening mammography. No reported family history of breast cancer. TECHNIQUE: (B) - Bilateral CC and MLO views were obtained. COMPARISON: 08/01/2013 PARENCHYMAL PATTERN: (A) - The breasts demonstrate scattered fibroglandular densities bilaterally. FINDINGS: There are no suspicious masses, calcifications, or areas of distortion. IMPRESSION: Negative examination. BI-RADS category 1. RECOMMENDATION: (ANNUAL) - Recommend routine annual screening mammography. BI-RADS CATEGORY: (1) - Negative. STANDARD QUALIFYING STATEMENTS: 1. This examination was not reviewed with the aid of Computer-Aided Detection (CAD). 2. A negative or benign imaging report should not preclude biopsy if clinically suspicious findings are present. 3. Dense breasts may obscure an underlying neoplasm. 4. This examination was reviewed the aid of 3D breast imaging (tomosynthesis).
== END 2019-04-17 12:32 | disposition home or self-care (01) ==
LOC: DI.N 12:31
PROVIDERS: ATTEND Physician Assistant Medical
DX: Z12.31 Encounter for screening mammogram for malignant neoplasm of breast (principal)
CPT/HCPCS: 77067

== ENCOUNTER 2019-06-12 13:46 | Outpatient (CLI) | payer MEDICARE | END 2019-06-12 13:47 | disposition home or self-care (01) | LOC: RT 13:46 | PROVIDERS: ATTEND Surgery | DX: Z12.11 Encounter for screening for malignant neoplasm of colon (principal) | CPT/HCPCS: 93005 ==

== ENCOUNTER 2020-01-31 10:59 | Outpatient (CLI) | payer MEDICARE ==
[2020-01-31 11:26] LABS: BASOPHILS # (AUTO) 0.1 10^3/uL (0.0-0.1); BASOPHILS % (AUTO) 0.7 %; EOSINOPHILS # (AUTO) 0.3 10^3/uL (0.0-0.7); EOSINOPHILS % (AUTO) 2.9 %; HGB - HEMOGLOBIN 14.1 g/dL (12.0-16.0); LYMPHOCYTES # (AUTO) 2.7 10^3/uL (1.5-3.5); LYMPHOCYTES % (AUTO) 27.2 %; MEAN CORPUSCULAR HEMOGLOBIN 29.6 pg (27.0-31.0); MEAN CORPUSCULAR HGB CONC 31.8 g/dL (32.0-36.0); MEAN CORPUSCULAR VOLUME 92.9 fL (81.0-99.0); MEAN PLATELET VOLUME 9.7 fL (7.9-10.8); MONOCYTES # (AUTO) 0.6 10^3/uL (0.0-1.0); MONOCYTES % (AUTO) 5.7 %; NEUTROPHILS # (AUTO) 6.3 10^3/uL (1.5-6.6); PLT - PLATELET COUNT 223 10^3/uL (130-450); RED BLOOD COUNT 4.77 10^6/uL (4.20-5.40); RED CELL DISTRIBUTION WIDTH 14.4 % (12.0-15.0); WHITE BLOOD COUNT 9.9 x10^3/uL (4.8-10.8)
[2020-01-31] MEDS ORDERED: IOVERSOL 320 100 ML VIAL IVP ONE ×2 (11:37→14:26)
[2020-01-31 11:56] LABS: ALBUMIN 3.8 g/dL (3.2-5.5); ALBUMIN/GLOBULIN RATIO 1.1 (1.0-2.2); ALKALINE PHOSPHATASE 81 IU/L (42-121); ALT ALANINE AMINOTRANSFERASE 17 IU/L (10-60); AST ASPARTATE AMINOTRANSFERASE 19 IU/L (10-42); BILIRUBIN,TOTAL 0.5 mg/dL (0.2-1.0); BUN - BLOOD UREA NITROGEN 14 mg/dL (6-20); CALCIUM 8.6 mg/dL (8.5-10.3); CARBON DIOXIDE - CO2 23 mmol/L (21-32); CHLORIDE 103 mmol/L (101-111); CHOL/HDL RATIO 4.4 (<4.4); CHOLESTEROL 205 mg/dL; CREATININE 0.6 mg/dL (0.4-1.0); GLUCOSE 104 mg/dL (70-100); HDL CHOLESTEROL 47 mg/dL; LDL CHOLESTEROL,CALCULATED 103 mg/dL; LDL/HDL RATIO 2.2 (<4.4); SODIUM 138 mmol/L (135-145); TOTAL PROTEIN 7.3 g/dL (6.7-8.2); VLDL CHOLESTEROL 55 mg/dL
[2020-01-31 12:22] LABS: HEMOGLOBIN A1c% 6.2 % (4.27-6.07)
--- NOTE | 2020-01-31 14:39 | CT Report ---
PROCEDURE: ANGIO ABDOMEN/PELVIS W INDICATIONS: ABDOMINAL AORTIC ANEURYSM W/O RUPTURE. CONTRAST: IV CONTRAST: Optiray 320 ml: 100 PO CONTRAST: *NO PO CONTRAST TECHNIQUE: After the administration of intravenous contrast, 2 and 5 mm sections acquired from the diaphragm to the iliac crests. 3-dimensional maximum intensity projection (MIP) coronal and sagittal reformats, a nd/or 3-dimensional volume rendering reformatting was then performed. For radiation dose reduction, the following was used: automated exposure control, adjustment of mA and/or kV according to patient size. COMPARISON: CT examination dated 03.31.16 FINDINGS: Image quality: Excellent. Extravascular tissues: There is increased subpleural nodule within the left lower lobe posterolateral ly measuring 7 mm diameter. Heart size is normal. Liver demonstrates diffusely decreased density, in dicating fatty infiltration. There is relative sparing surrounding the gallbladder fossa. Gallbladder demonstrates calculi within its lumen without evidence of wall thickening. Biliary system is non di lated. Pancreas enhances normally. No adrenal nodules. Kidneys are normal in size and enhancement, without hydronephrosis. Non-opacified bowel loops demonstrate normal wall thickness and caliber. Di verticulosis of the descending and sigmoid colon. No free fluid or air. No retroperitoneal or mesent donna adenopathy. Retroaortic left renal vein. There are 2 adjacent bowel containing abdominal wall he rnias in the supraumbilical location. The superior of these contains a loop of transverse colon, young uring roughly 9 cm transverse. The more inferior of these contains a loop of transverse colon. No def inite bowel strangulation, nor obstruction. No suspicious bony abnormalities. No vertebral body comp ression fractures. Abdominal aorta: There is a focal infrarenal abdominal aortic aneurysm which measures roughly 38 mm short axis, which is increased. No significant aortic stenosis nor dissection. Mesenteric arteries: Mild diffuse stenosis of the celiac and superior mesenteric arteries. Moderate to high-grade origin stenosis of the inferior mesenteric artery. Renal arteries: Single bilateral renal arteries are present which demonstrates mild origin stenoses bilaterally. IMPRESSION: 1. Increased abdominal aortic aneurysm as described above. 2. Cholelithiasis without evidence of cholecystitis. 3. Hepatic steatosis. 4. Increased left lung base nodule; this could be further assessed with chest CT with intravenous con trast, if clinically indicated. 5. Similar appearance of large bowel-containing anterior abdominal wall hernias without evidence of s trangulation, nor obstruction. Reviewed by: Oneida Abbott MD on 01/31/2020 2:38 PM PDT Approved by: Oneida Abbott MD on 01/31/2020 2:38 PM PDT Station ID: [id number]
== END 2020-01-31 11:00 | disposition home or self-care (01) ==
LOC: LAB 10:59 → DI 11:00
PROVIDERS: ATTEND Nurse Practitioner
DX: I71.4 Abdominal aortic aneurysm, without rupture (principal); K80.20 Calculus of gallbladder without cholecystitis without obstruction; K76.0 Fatty (change of) liver, not elsewhere classified; R91.1 Solitary pulmonary nodule; K43.9 Ventral hernia without obstruction or gangrene; R73.01 Impaired fasting glucose; F33.0 Major depressive disorder, recurrent, mild; E78.1 Pure hyperglyceridemia; K27.9 Peptic ulcer, site unspecified, unspecified as acute or chronic, without hemorrhage or perforation
CPT/HCPCS: 36415; 74174; 80053; 80061; 83036; 84443; 85025; Q9967; 83721

== ENCOUNTER 2020-02-19 11:36 | Outpatient (CLI) | payer MEDICARE ==
[2020-02-19] MEDS ORDERED: IOVERSOL 320 100 ML VIAL IVP ONE ×2 (11:47→14:02)
--- NOTE | 2020-02-19 14:21 | CT Report ---
PROCEDURE: CHEST W INDICATIONS: LUNG NODULE CONTRAST: IV CONTRAST: Optiray 320 ml: 100 PO CONTRAST: *NO PO CONTRAST TECHNIQUE: After the administration of intravenous contrast, 5 mm thick sections acquired from the pulmonary api kirti to the posterior costophrenic angles. 7 mm thick coronal MIP reformats were acquired. For radia tion dose reduction, the following was used: automated exposure control, adjustment of mA and/or kV according to patient size. COMPARISON: CT angiogram abdomen 01/31/2020 CT chest 12/03/2012 FINDINGS: Image quality: Excellent. Lungs and pleura: No acute air space opacities. No pleural effusions or pneumothorax. Central and peripheral airways are patent and normal in caliber. 7 mm nodule in the left upper lobe is present o n 5 image 69, new compared to 2013. In addition, 7 mm subpleural posterior left lower lobe nodule on series 5 image 69 is stable compared to 01/31/2020 and 12/03/2012. 5 mm nodule is present within the rig ht upper lobe on series 5 image 113, new compared to prior exam. Mediastinum: Heart size is normal. No pericardial effusion. No mediastinal or hilar adenopathy by size criteria. Thoracic aorta and central pulmonary arteries are normal in size. Esophagus is domingo l in caliber. No hiatal hernia. Bones and chest wall: No suspicious bony lesions. No vertebral body compression fractures. No axil amaury or supraclavicular adenopathy by size criteria. Thyroid gland is unremarkable. Abdomen: Partially visualized bowel containing ventral hernia is present within the upper abdomen wit hout obstruction. Hepatic steatosis is present. Otherwise, visualized upper abdominal solid organs ap pear normal. Upper abdominal bowel loops are normal in caliber. IMPRESSION: 1. Bilateral pulmonary nodules with new nodules identified in both the right and left upper lobes. Re commend interval follow-up as below based on initial visualization date of 02/19/2020 and size. Fleischner Society criteria for SOLID lung nodule followup. Nodule size (mm) * <6 * Low-risk patient: No follow-up needed * High-risk patient: Optional CT at 12 months; if no change, no further follow-up * 6-8 * Low-risk patient: Initial follow-up CT at 6-12 months, then optional CT at 18-24 months. * High-risk patient: Initial follow-up CT at CT at 6-[address] 18-24 months. * >8 single nodule * Low-risk patient: CT, PET or biopsy at 3 months. * High-risk patient: Same as for low-risk pts. * >8 multiple nodules * Low-risk patient: CT at 3-6 months, then optional CT at 18-24 months * High-risk patient: CT at 3-6 months, then CT at 18-24 months Reviewed by: Marisol Doe MD on 02/19/2020 2:19 PM PDT Approved by: Marisol Doe MD on 02/19/2020 2:19 PM PDT Station ID: [id number]
== END 2020-02-19 11:37 | disposition home or self-care (01) ==
LOC: DI 11:36
PROVIDERS: ATTEND Nurse Practitioner
DX: R91.8 Other nonspecific abnormal finding of lung field (principal)
CPT/HCPCS: 71260; Q9967

== ENCOUNTER 2020-08-27 11:36 | Outpatient (CLI) | payer MEDICARE ==
[2020-08-27] MEDS ORDERED: IOPAMIDOL-300 100 ML VIAL ONE (11:45)
[2020-08-27 11:46] LABS: CREATININE 0.7 mg/dL (0.4-1.0)
[2020-08-27] MEDS ORDERED: IOPAMIDOL-300 100 ML VIAL IVP ONE (13:14)
--- NOTE | 2020-08-27 16:23 | CT Report ---
PROCEDURE: CHEST W INDICATIONS: LUNG NODULE CONTRAST: IV CONTRAST: Isovue 300 ml: 100 PO CONTRAST: *NO PO CONTRAST TECHNIQUE: After the administration of intravenous contrast, 5 mm thick sections acquired from the pulmonary api kirti to the posterior costophrenic angles. 7 mm thick coronal MIP reformats were acquired. For radia tion dose reduction, the following was used: automated exposure control, adjustment of mA and/or kV according to patient size. COMPARISON: Prior CT scanning 02/19/2020 and 12/03/2012.. FINDINGS: Image quality: Excellent. Lungs and pleura: No acute air space opacities. There has been no appreciable change in the 7 mm no dule seen at the left apex, series 4 image 69. 02/19/2020. A pleural-based nodule previously seen on 02/19/2020 is currently seen on , posterolateral left lung base. This has not changed, and a lso measures 7 mm in diameter. In the prior report from 02/19/2020 a travel director error resulted in b eing described as located on series 5 image 69. This was the position of the first 7 mm nodule, more superiorly. No pleural effusions or pneumothorax. Central and peripheral airways are patent and norm al in caliber. Mediastinum: Heart size is normal. No pericardial effusion. No mediastinal or hilar adenopathy by size criteria. Thoracic aorta and central pulmonary arteries are normal in size. Esophagus is domingo l in caliber. No hiatal hernia. Bones and chest wall: No suspicious bony lesions. No vertebral body compression fractures. No axil amaury or supraclavicular adenopathy by size criteria. Thyroid gland . Abdomen: Visualized upper abdominal solid organs appear normal. Upper abdominal bowel loops are nor mal in caliber. IMPRESSION: There are 2 left-sided 7 mm small solid pulmonary nodules that were newly identified with reference t o prior studies on the CT scan dated 02/19/2020. These have not changed in size or morphology and no n ew nodules have developed. In a low risk patient the Fleischner Society guidelines for follow-up of s olid pulmonary nodules states that for 6-8 mm pulmonary nodules additional follow-up scanning would b e an "optional" CT scan at 18-24 months after initial identification. In a high risk patient the 18-2 4 month follow-up CT is recommended rather than optional. Please correlate clinically between these 2 categories. Reviewed by: Troy De Los Santos MD on 08/27/2020 4:22 PM PDT Approved by: Troy De Los Santos MD on 08/27/2020 4:22 PM PDT Station ID: [id number]
== END 2020-08-27 11:37 | disposition home or self-care (01) ==
LOC: LAB 11:36 → DI 11:37
PROVIDERS: ATTEND Nurse Practitioner
DX: R91.8 Other nonspecific abnormal finding of lung field (principal); I10 Essential (primary) hypertension
CPT/HCPCS: 36415; 71260; 82565; Q9967

== ENCOUNTER → 2020-12-19 | Outpatient (CLI) | payer MEDICARE ==
--- NOTE | 2020-12-19 17:03 | XRAY Report ---
PROCEDURE: Foot 3 View LT INDICATIONS: FOOT PAIN, LEFT TECHNIQUE: 3 views of the foot were acquired. COMPARISON: None FINDINGS: Bones: No fractures or dislocations. No suspicious bony lesions. Soft tissues: No tibiotalar joint effusion. Achilles tendon appears normal. IMPRESSION: There is a slight degree of degenerative osteoarthritic change at the inner phalangeal joints of the toes, and also slight degenerative joint space narrowing can be seen at the first MTP joint. No traum a found. Reviewed by: Troy De Los Santos MD on 12/19/2020 5:01 PM PDT Approved by: Troy De Los Santos MD on 12/19/2020 5:01 PM PDT Station ID: [id number]
== END ==
LOC: DI.N 14:17
PROVIDERS: ATTEND Family Medicine
DX: M79.672 Pain in left foot (principal); M19.072 Primary osteoarthritis, left ankle and foot

== ENCOUNTER 2021-01-22 10:40 | Outpatient (CLI) | payer MEDICARE ==
--- NOTE | 2021-01-22 17:09 | XRAY Report ---
PROCEDURE: Skull Complete INDICATIONS: HEADACHE TECHNIQUE: 4 view(s) of the skull acquired. COMPARISON: None FINDINGS: Bones: No fractures. No suspicious bony lesions. Visualized sinuses appear clear. Soft tissues: No soft tissue calcifications. No suspicious soft tissue densities. IMPRESSION: No paranasal sinus inflammation or air-fluid level is found. Reviewed by: Troy De Los Santos MD on 01/22/2021 5:07 PM PDT Approved by: Troy De Los Santos MD on 01/22/2021 5:07 PM PDT Station ID: [id number]
--- NOTE | 2021-01-22 17:10 | XRAY Report ---
PROCEDURE: Thoracic Spine 2 View INDICATIONS: THORACIC BACK PX TECHNIQUE: 3 views of the thoracic spine were acquired. COMPARISON: None. FINDINGS: Bones: No fractures or dislocations. No suspicious bony lesions. 12 pairs of ribs are noted, and a ppear intact where visualized. Soft tissues: No paravertebral stripe thickening. IMPRESSION: There is a moderate degree of diffuse degenerative disc disease along the thoracic spine without evid ence of compression fracture, or subluxation. No inflammatory change along the paraspinous soft tissu es is found. Spinal and foraminal stenosis may be associated and depending on the clinical status fol low-up by MR scanning may be warranted. Reviewed by: Troy De Los Santos MD on 01/22/2021 5:08 PM PDT Approved by: Troy De Los Santos MD on 01/22/2021 5:08 PM PDT Station ID: [id number]
--- NOTE | 2021-01-22 17:11 | XRAY Report ---
PROCEDURE: Lumbar Spine 2 View INDICATIONS: LOW BACK PX TECHNIQUE: 3 views of the lumbar spine were acquired. COMPARISON: None. FINDINGS: Bones: 5 [id number] vertebrae are present. There is normal bony alignment. No vertebral body compression fractures. No suspicious bony lesions. There is a moderate degree of degenerative disc disease over the upper half of the LS-spine and then at L4-5 and L5-S1 moderately severe degenerative disc disease is seen. Facet osteoarthritis becomes progressively more prominent from L3 inferiorly a nd there is mild grade 1 anterolisthesis of L3 on L4 from ligamentous laxity. Soft tissues: Overlying bowel gas pattern is normal. No suspicious soft tissue calcifications. IMPRESSION: No compression fracture found, no acute disease. Moderately severe to severe degenerativ e changes are present at L4-5 and L5-S1 to the degree that multilevel spinal and foraminal stenosis l ikely is associated. Ligamentous laxity from facet osteoarthritis allows grade 1 anterolisthesis of L 3 on L4. Reviewed by: Troy De Los Santos MD on 01/22/2021 5:09 PM PDT Approved by: Troy De LosS antos MD on 01/22/2021 5:09 PM PDT Station ID: [id number]
== END 2021-01-22 10:41 | disposition home or self-care (01) ==
LOC: DI.N 10:40
PROVIDERS: ATTEND Family Medicine
DX: R51.9 Headache, unspecified (principal); M51.34 Other intervertebral disc degeneration, thoracic region; M43.16 Spondylolisthesis, lumbar region; M47.816 Spondylosis without myelopathy or radiculopathy, lumbar region; M51.36 Other intervertebral disc degeneration, lumbar region; M51.37 Other intervertebral disc degeneration, lumbosacral region

== ENCOUNTER 2021-02-04 16:29 | Outpatient (CLI) | payer MEDICARE ==
--- NOTE | 2021-02-05 11:50 | Ultrasound Report ---
PROCEDURE: Retroperitoneal Limited INDICATIONS: ABDOMINAL AORTIC ANEURYSM TECHNIQUE: Real-time scanning was performed of the abdominal aorta, with image documentation. COMPARISON: CTA of the abdomen and pelvis 01/31/2020 FINDINGS: Proximal abdominal aorta measures 2.4 cm in AP diameter. Mid aorta is 2.1 cm in AP diameter. There is fusiform aneurysm of the distal abdominal aorta measuring 3.2 cm in AP diameter by 3.9 cm in transve rse diameter for length of about 4.6 cm. Proximal common iliac arteries were not seen due to bowel gas. IMPRESSION: 1. Stable distal abdominal aortic fusiform aneurysm compared to most recent prior study. Reviewed by: Franchesca Combs MD on 02/05/2021 11:49 AM PDT Approved by: Franchesca Combs MD on 02/05/2021 11:49 AM PDT Station ID: [id number]
== END 2021-02-04 16:30 | disposition home or self-care (01) ==
LOC: DI 16:29
PROVIDERS: ATTEND Family Medicine
DX: I71.4 Abdominal aortic aneurysm, without rupture (principal)

== ENCOUNTER 2021-04-25 10:54 | Outpatient (CLI) | payer MEDICARE ==
[2021-04-25 18:14] LABS: BASOPHILS # (AUTO) 0.1 10^3/uL (0.0-0.1); BASOPHILS % (AUTO) 0.8 %; EOSINOPHILS # (AUTO) 0.3 10^3/uL (0.0-0.7); EOSINOPHILS % (AUTO) 2.9 %; HCT - HEMATOCRIT 47.2 % (37.0-47.0); HGB - HEMOGLOBIN 14.7 g/dL (12.0-16.0); LYMPHOCYTES % (AUTO) 28.5 %; MEAN CORPUSCULAR HEMOGLOBIN 29.4 pg (27.0-31.0); MEAN CORPUSCULAR HGB CONC 31.1 g/dL (32.0-36.0); MEAN CORPUSCULAR VOLUME 94.4 fL (81.0-99.0); MEAN PLATELET VOLUME 10.8 fL (7.9-10.8); MONOCYTES # (AUTO) 0.6 10^3/uL (0.0-1.0); MONOCYTES % (AUTO) 5.7 %; NEUTROPHILS # (AUTO) 6.5 10^3/uL (1.5-6.6); NEUTROPHILS % (AUTO) 61.5 %; PLT - PLATELET COUNT 262 10^3/uL (130-450); RED CELL DISTRIBUTION WIDTH 14.1 % (12.0-15.0); WHITE BLOOD COUNT 10.6 x10^3/uL (4.8-10.8)
[2021-04-25 18:27] LABS: ALBUMIN 4.1 g/dL (3.2-5.5); ALBUMIN/GLOBULIN RATIO 1.2 (1.0-2.2); BILIRUBIN,TOTAL 0.5 mg/dL (0.2-1.0); CALCIUM 9.2 mg/dL (8.5-10.3); CREATININE 0.7 mg/dL (0.4-1.0); POTASSIUM 4.3 mmol/L (3.5-5.0); TOTAL PROTEIN 7.5 g/dL (6.7-8.2)
== END 2021-04-25 23:59 | disposition home or self-care (01) ==
LOC: LAB.WCP 10:54
PROVIDERS: ATTEND Family Medicine
DX: R10.11 Right upper quadrant pain (principal)
CPT/HCPCS: 36415; 80053; 85025

== ENCOUNTER 2021-05-04 09:40 | Outpatient (CLI) | payer MEDICARE ==
[2021-05-04] MEDS ORDERED: IOPAMIDOL-300 100 ML VIAL ONE (09:55)
[2021-05-04] MEDS ORDERED: IOVERSOL 320 50 ML VIAL ONE (09:55)
[2021-05-04] MEDS ORDERED: IOPAMIDOL-300 100 ML VIAL IVP ONE (11:09)
[2021-05-04] MEDS ORDERED: IOVERSOL 320 50 ML VIAL PO ONE (11:10)
--- NOTE | 2021-05-04 22:33 | CT Report ---
PROCEDURE: Abdomen/Pelvis W INDICATIONS: ABD PAIN CONTRAST: IV CONTRAST: Isovue 300 ml: 100 PO CONTRAST: Optiray 320 ml50 TECHNIQUE: After the administration of oral and intravenous contrast, 5 mm thick sections acquired from the diap hragms to the symphysis. 5 mm thick coronal and sagittal reformats were acquired. For radiation dos e reduction, the following was used: automated exposure control, adjustment of mA and/or kV accordin g to patient size. COMPARISON: CT angiography abdomen and pelvis 01/31/2020. CT abdomen and pelvis 11/21/2012. FINDINGS: Image quality: Excellent. ABDOMEN: Lung bases: Minimal atelectasis. Left lung base pleural pulmonary nodule measuring 0.5 cm mean diamet er, (/12), unchanged. Right lower lobe pulmonary nodule measuring 0.3 cm, (4/2), unchanged. No pleur al effusion. Heart size is normal. Solid organs: Liver and spleen are normal in size. Hepatic steatosis. Gallbladder is mildly distende d. There is a calcified gallstone near the neck of the gallbladder measuring 0.6 cm. No pericholecys tic fluid. Biliary system is non dilated. Pancreas enhances normally. No adrenal nodules. Kidneys demonstrate normal size and enhancement, without hydronephrosis. Peritoneum and bowel: No small bowel obstruction. Diverticulosis. No diverticulitis. Normal appendix. No free fluid or air. Nodes and vessels: No retroperitoneal or mesenteric adenopathy by size criteria. Infrarenal abdomina l aortic aneurysm measuring 3.7 cm, (6/39), previously 3.6 cm, and remotely 2.9 cm in 2013. Calcified atherosclerotic plaque. Retroaortic left renal vein. Miscellaneous: Ventral abdominal wall hernia containing portions of the transverse colon. Overall thi s appears similar to the prior CT. The oral contrast passes through the colon at this point. PELVIS: Genitourinary: Bladder wall thickness is normal. Uterus is absent. Miscellaneous: No inguinal hernias or adenopathy. Clip in the right lower quadrant. Bones: No suspicious bony lesions. Degenerative change. No vertebral body compression fractures. IMPRESSION: 1. Similar gallbladder distention and a stone near the gallbladder neck. Findings could be seen in ch olecystitis. However, no pericholecystic fluid. 2. Similar ventral abdominal wall hernia containing portions of the transverse colon. No small bowel obstruction. 3. Diverticulosis. 4. Hepatic steatosis. 5. AAA measuring 3.7 cm is not significantly changed. However, this is increased compared to 2013 whe re it measured 2.9 cm. Reviewed by: Alexy Arnett MD on 05/04/2021 10:32 PM PST Approved by: Alexy Arnett MD on 05/04/2021 10:32 PM PST Station ID: [id number]
== END 2021-05-04 09:41 | disposition home or self-care (01) ==
LOC: DI 09:40
PROVIDERS: ATTEND Family Medicine
DX: K80.20 Calculus of gallbladder without cholecystitis without obstruction (principal); K43.9 Ventral hernia without obstruction or gangrene; K57.90 Diverticulosis of intestine, part unspecified, without perforation or abscess without bleeding; K76.0 Fatty (change of) liver, not elsewhere classified; I71.4 Abdominal aortic aneurysm, without rupture
CPT/HCPCS: 74177; Q9967

== ENCOUNTER 2022-02-17 13:51 | Outpatient (CLI) | payer MEDICARE ==
[2022-02-17 17:51] LABS: BASOPHILS # (AUTO) 0.1 10^3/uL (0.0-0.1); BASOPHILS % (AUTO) 0.9 %; EOSINOPHILS # (AUTO) 0.3 10^3/uL (0.0-0.7); EOSINOPHILS % (AUTO) 2.9 %; HCT - HEMATOCRIT 44.8 % (37.0-47.0); HGB - HEMOGLOBIN 14.7 g/dL (12.0-16.0); LYMPHOCYTES # (AUTO) 3.9 10^3/uL (1.5-3.5); LYMPHOCYTES % (AUTO) 34.7 %; MEAN CORPUSCULAR HEMOGLOBIN 29.9 pg (27.0-31.0); MEAN CORPUSCULAR HGB CONC 32.8 g/dL (32.0-36.0); MEAN CORPUSCULAR VOLUME 91.2 fL (81.0-99.0); MEAN PLATELET VOLUME 10.9 fL (7.9-10.8); MONOCYTES # (AUTO) 0.9 10^3/uL (0.0-1.0); MONOCYTES % (AUTO) 8.4 %; NEUTROPHILS # (AUTO) 5.9 10^3/uL (1.5-6.6); NEUTROPHILS % (AUTO) 52.6 %; PLT - PLATELET COUNT 291 10^3/uL (130-450); RED BLOOD COUNT 4.91 10^6/uL (4.20-5.40); RED CELL DISTRIBUTION WIDTH 14.4 % (12.0-15.0); WHITE BLOOD COUNT 11.2 x10^3/uL (4.8-10.8)
[2022-02-17 18:11] LABS: ALBUMIN 3.9 g/dL (3.2-5.5); ALKALINE PHOSPHATASE 77 IU/L (42-121); ALT ALANINE AMINOTRANSFERASE 21 IU/L (10-60); AST ASPARTATE AMINOTRANSFERASE 24 IU/L (10-42); BILIRUBIN,TOTAL 0.5 mg/dL (0.2-1.0); BUN - BLOOD UREA NITROGEN 24 mg/dL (6-20); CALCIUM 9.5 mg/dL (8.5-10.3); CARBON DIOXIDE - CO2 27 mmol/L (21-32); CHLORIDE 99 mmol/L (101-111); CHOL/HDL RATIO 5.3 (<4.4); CHOLESTEROL 253 mg/dL; CREATININE 0.7 mg/dL (0.4-1.0); GFR - MDRD 83 (>89); GLUCOSE 137 mg/dL (70-100); HDL CHOLESTEROL 48 mg/dL; LDL CHOLESTEROL,CALCULATED 139 mg/dL; LDL/HDL RATIO 2.9 (<4.4); POTASSIUM 4.1 mmol/L (3.5-5.0); SODIUM 137 mmol/L (135-145); TRIGLYCERIDES 329 mg/dL; VLDL CHOLESTEROL 66 mg/dL
[2022-02-17 18:14] LABS: CREATININE,URINE 48.4 mg/dL; MICROALBUM/CREATININE RATIO,UR 6.2 ug/mg (<30.0); MICROALBUMIN,URINE 0.3 mg/dL (0-300.0)
[2022-02-17 18:20] LABS: THYROID STIMULATING HORMONE 7.28 uIU/mL (0.34-5.60)
[2022-02-17 19:01] LABS: FREE T4 (FREE THYROXINE) 0.65 ng/dL (0.58-1.64)
[2022-02-17 20:15] LABS: ESTIMATED AVERAGE GLUCOSE 146 mg/dL (70-100); HEMOGLOBIN A1c% 6.7 % (4.27-6.07)
== END 2022-02-17 13:52 | disposition home or self-care (01) ==
LOC: LAB.N 13:51
PROVIDERS: ATTEND Internal Medicine
DX: E78.2 Mixed hyperlipidemia (principal); K76.0 Fatty (change of) liver, not elsewhere classified; R73.03 Prediabetes; I71.4 Abdominal aortic aneurysm, without rupture; R60.0 Localized edema
CPT/HCPCS: 36415; 80053; 80061; 82043; 82570; 83036; 83721; 84439; 84443; 85025

== ENCOUNTER 2022-02-17 14:06 | Outpatient (CLI) | payer MEDICARE ==
--- NOTE | 2022-02-17 16:34 | XRAY Report ---
PROCEDURE: Knee Standing AP View Only INDICATIONS: BILATERAL KNEE PX TECHNIQUE: A single AP view of the right and left knee were obtained COMPARISON: None. FINDINGS: On the right, there is advanced joint space narrowing with marginal osteophytes present. No evidence of fracture. Mild medial subluxation of the femur relative to the tibia. On the left, moderate joint space narrowing without subluxation present. Appropriate osseous mineralization present throughout. Soft tissues: Unremarkable IMPRESSION: Moderate - severe bilateral osteoarthritis Reviewed by: Shane Irving MD on 02/17/2022 3:33 PM TAYLOR Approved by: Shane Irving MD on 02/17/2022 3:33 PM AKJEN Station ID: [id number]
== END 2022-02-17 14:07 | disposition home or self-care (01) ==
LOC: DI.N 14:06
PROVIDERS: ATTEND Internal Medicine
DX: M17.0 Bilateral primary osteoarthritis of knee (principal); E78.2 Mixed hyperlipidemia; K76.0 Fatty (change of) liver, not elsewhere classified; R73.03 Prediabetes; R60.0 Localized edema; I71.4 Abdominal aortic aneurysm, without rupture
CPT/HCPCS: 36415; 80053; 80061; 82043; 82570; 83036; 83721; 84439; 84443; 85025

== ENCOUNTER 2022-02-23 13:35 | Outpatient (CLI) | payer MEDICARE ==
[2022-02-23 18:24] LABS: FECAL OCCULT BLOOD (FIT) POSITIVE (NEGATIVE)
== END 2022-02-23 13:36 | disposition home or self-care (01) ==
LOC: LAB.N 13:35
PROVIDERS: ATTEND Internal Medicine
DX: Z12.11 Encounter for screening for malignant neoplasm of colon (principal)
CPT/HCPCS: 82274

== ENCOUNTER 2022-03-10 07:50 | Outpatient (CLI) | payer MEDICARE ==
--- NOTE | 2022-03-10 15:42 | Ultrasound Report ---
PROCEDURE: Retroperitoneal Limited INDICATIONS: AAA, PULMONARY NODULE TECHNIQUE: Real-time scanning was performed of the retroperitoneal organs, with image documentation. COMPARISON: 05/04/2021 FINDINGS: The abdominal aorta is not seen proximally due to obscuration by bowel gas and patient body habitus, both factors limiting the sonographic window and visualization of structures. The mid abdominal aorta measures 2.2 x 2.3 cm. The distal abdominal aorta measures 3.5 x 3.7 cm, not significantly changed from 05/04/2021 CT abdome n and pelvis. Common iliac arteries measure 1.2 cm in diameter. IMPRESSION: Stable infrarenal abdominal aortic aneurysm. Reviewed by: Dane Lora MD on 03/10/2022 3:41 PM PDT Approved by: Dane Lora MD on 03/10/2022 3:41 PM PDT Station ID: [id number]
--- NOTE | 2022-03-10 16:57 | CT Report ---
PROCEDURE: CHEST WO INDICATIONS: AAA, PULMONARY NODULE TECHNIQUE: Noncontrast 1mm axial images were acquired from the pulmonary apices to the posterior costophrenic an gles. Axial 5 mm soft tissue kernel reconstructions were performed as well as 8 mm axial MIP and cor onal and sagittal 5 mm reformations. For radiation dose reduction, the following was used: automate d exposure control, adjustment of mA and/or kV according to patient size. COMPARISON: 08/27/2020, 02/19/2020, 12/03/2012 FINDINGS: Image quality: Excellent. Lungs and pleura: Pulmonary nodules are seen: Left lung apex, series 4 image 77, 7 mm, stable Left lower lobe, subpleural posteriorly, 7 mm, similar to the prior Right upper lobe adjacent to the right minor fissure, series 4 image 123, 4 mm, stable No new nodules are detected. Mild dependent atelectasis can be seen involving the left lower lobe. No acute air space opacities. No pleural effusions or pneumothorax. Central and peripheral airways are patent and normal in caliber. Mediastinum: Moderate coronary artery calcification is seen. Heart size is normal. No pericardial ef fusion. No mediastinal adenopathy by size criteria. Thoracic aorta and central pulmonary arteries a re normal in size. Esophagus is normal in caliber. No hiatal hernia. Bones and chest wall: No suspicious bony lesions. No vertebral body compression fractures. No axil amaury or supraclavicular adenopathy by size criteria. The thyroid is normal in size and there are no incidental findings. Abdomen: An enlarged, fatty infiltrated liver can be seen. There is an epigastric hernia seen, which contains fat and nondilated transverse colon. At least one dependent gallstone can be seen. Right upp er quadrant clips are seen inferior to the left liver. The visualized portions of the upper abdominal structures are otherwise within normal limits. IMPRESSION: Stable pulmonary nodules are seen. By published criteria, no specific imaging follow-up is recommended, however, attention should be gianna d to these nodules on any future studies through the region. Incidental note is made of: Moderate coronary artery calcification Enlarged, fatty liver Gallstone Epigastric hernia, containing fat and nondilated transverse colon Right upper quadrant clips Reviewed by: Ammon Borwn MD on 03/10/2022 3:56 PM AKDT Approved by: Ammon Brown MD on 03/10/2022 3:56 PM TAYLOR Station ID: [id number]
== END 2022-03-10 07:51 | disposition home or self-care (01) ==
LOC: DI 07:50
PROVIDERS: ATTEND Internal Medicine
DX: I71.40 Abdominal aortic aneurysm, without rupture, unspecified (principal); R91.8 Other nonspecific abnormal finding of lung field

== ENCOUNTER 2022-03-10 07:51 | Outpatient (CLI) | payer MEDICARE ==
--- NOTE | 2022-03-11 12:14 | Mammography Report ---
BILATERAL DIGITAL SCREENING MAMMOGRAM 3D/2D: 03/10/2022 CLINICAL: Routine screening. Comparison is made to exams dated: 04/17/2019 mammogram, 08/01/2013 mammogram, and 09/14/2011 mammogra m - [facility]. Both breasts are almost entirely fatty (category a/<25% glandular tissue). No significant masses, calcifications, or other findings are seen in either breast. There has been no significant interval change. IMPRESSION: NEGATIVE There is no mammographic evidence of malignancy. A 1 year screening mammogram is recommended. Based on the Tyrer Cuzick model (a risk assessment model) the patients lifetime risk is 2.0% and her 10 year risk is 1.2%. According to the ACR, ACS, and NCCN guidelines, an annual breast MRI exam ambar g with mammogram is recommended if the patients lifetime risk is 20% or greater. This exam was interpreted at Station ID: [id number]. NOTE: For mammograms, a report in lay terms will be sent to the patient. Approximately 15% of breast malignancies will not be visualized mammographically. In the management of a palpable breast mass, a negative mammogram must not discourage biopsy of a clinically suspicious lesion. Electronically Signed By: David Blanco M.D. aty/penrad:03/10/2022 23:27:44 ACR BI-RADS Category 1: Negative 3341F PARENCHYMAL PATTERN: (F) - The breast(s) demonstrate(s) diffuse fatty replacement. BI-RADS CATEGORY: (1) - 1 RECOMMENDATION: (ANNUAL) - Recommend routine annual screening mammography. [id number] 1 year screening LATERALITY: (B)
== END 2022-03-10 07:52 | disposition home or self-care (01) ==
LOC: DI 07:51
PROVIDERS: ATTEND Internal Medicine
DX: Z12.31 Encounter for screening mammogram for malignant neoplasm of breast (principal)

== ENCOUNTER 2022-08-20 09:08 | Outpatient (CLI) | payer MEDICARE ==
[2022-08-20 11:48] LABS: BASOPHILS # (AUTO) 0.1 10^3/uL (0.0-0.1); BASOPHILS % (AUTO) 0.7 %; EOSINOPHILS # (AUTO) 0.5 10^3/uL (0.0-0.7); EOSINOPHILS % (AUTO) 3.7 %; HCT - HEMATOCRIT 44.6 % (37.0-47.0); LYMPHOCYTES % (AUTO) 33.1 %; MEAN CORPUSCULAR HEMOGLOBIN 29.5 pg (27.0-31.0); MEAN CORPUSCULAR HGB CONC 31.4 g/dL (32.0-36.0); MEAN CORPUSCULAR VOLUME 94.1 fL (81.0-99.0); MEAN PLATELET VOLUME 11.1 fL (7.9-10.8); MONOCYTES # (AUTO) 0.7 10^3/uL (0.0-1.0); MONOCYTES % (AUTO) 5.4 %; NEUTROPHILS # (AUTO) 6.9 10^3/uL (1.5-6.6); NEUTROPHILS % (AUTO) 56.7 %; PLT - PLATELET COUNT 271 10^3/uL (130-450); RED BLOOD COUNT 4.74 10^6/uL (4.20-5.40); RED CELL DISTRIBUTION WIDTH 14.3 % (12.0-15.0); WHITE BLOOD COUNT 12.2 x10^3/uL (4.8-10.8)
[2022-08-20 12:15] LABS: THYROID STIMULATING HORMONE 4.51 uIU/mL (0.34-5.60)
[2022-08-20 12:18] LABS: ALBUMIN 3.8 g/dL (3.2-5.5); ALBUMIN/GLOBULIN RATIO 1.1 (1.0-2.2); ALKALINE PHOSPHATASE 60 IU/L (42-121); ALT ALANINE AMINOTRANSFERASE 24 IU/L (10-60); AST ASPARTATE AMINOTRANSFERASE 26 IU/L (10-42); BILIRUBIN,TOTAL 0.2 mg/dL (0.2-1.0); BUN - BLOOD UREA NITROGEN 18 mg/dL (6-20); CALCIUM 8.8 mg/dL (8.5-10.3); CARBON DIOXIDE - CO2 27 mmol/L (21-32); CHLORIDE 107 mmol/L (101-111); CHOL/HDL RATIO 3.7 (<4.4); CHOLESTEROL 169 mg/dL; CREATININE 0.7 mg/dL (0.4-1.0); GFR - MDRD 82 (>89); GLUCOSE 164 mg/dL (70-100); HDL CHOLESTEROL 46 mg/dL; LDL CHOLESTEROL,CALCULATED 72 mg/dL; LDL/HDL RATIO 1.6 (<4.4); POTASSIUM 3.9 mmol/L (3.5-5.0); SODIUM 141 mmol/L (135-145); TOTAL PROTEIN 7.4 g/dL (6.7-8.2); TRIGLYCERIDES 257 mg/dL; VLDL CHOLESTEROL 51 mg/dL
[2022-08-20 12:24] LABS: ESTIMATED AVERAGE GLUCOSE 154 mg/dL (70-100)
== END 2022-08-20 09:09 | disposition home or self-care (01) ==
LOC: LAB.N 09:08
PROVIDERS: ATTEND Internal Medicine
DX: E11.9 Type 2 diabetes mellitus without complications (principal); E78.2 Mixed hyperlipidemia; R94.6 Abnormal results of thyroid function studies; I10 Essential (primary) hypertension
CPT/HCPCS: 36415; 80053; 80061; 82043; 82570; 83036; 83721; 84443; 85025

== ENCOUNTER 2022-10-13 06:13 | Day surgery (SDC) | payer MEDICARE ==
[2022-10-13] MEDS ORDERED: LACTATED RINGERS 1,000 ML IV ONE ×2 (06:35→08:05)
--- NOTE | 2022-10-13 06:47 | ANESTHESIA ---
Pre-Anesthesia VS, & Labs - Diagnosis positive fit test - Procedure colonoscopy Height: 5 ft 5 in - NPO >8 hours (am prep) - Is Patient ?: No - Lab Results Lab results reviewed: Yes Home Medications and Allergies Home Medications: Ambulatory Orders Metoprolol Succinate [Toprol Xl] 50 mg PO DAILY 10/09/22 Rosuvastatin Calcium [Crestor] 40 mg PO DAILY 10/09/22 Triamterene/Hdyrochlor 37.5/25 [Dyazide] 1 each PO DAILY 10/09/22 Venlafaxine HCl [Venlafaxine HCl ER] 150 mg PO DAILY 11/08/18 Metoprolol Succinate [Toprol Xl] 50 mg PO DAILY 10/09/22 Rosuvastatin Calcium [Crestor] 40 mg PO DAILY 10/09/22 Triamterene/Hdyrochlor 37.5/25 [Dyazide] 1 each PO DAILY 10/09/22 Allergies/Adverse Reactions: Allergies Allergy/AdvReac Type Severity Reaction Status Date / Time codeine [Codeine] Allergy Hives Verified 10/24/18 14:51 Anes History & Medical History - Anesthetic History Anesthesia Complications: reports: No previous complications Family history of Anesthesia Complications: Denies Family history of Malignant Hyperthermia: Denies - Medical History Cardiovascular: reports: Hypertension, High cholesterol, Deep vein thrombosis, Pulmonary embolism, Murmur Pulmonary: reports: None Gastrointestinal: reports: Ulcers, Hiatal hernia Urinary: reports: None Musculoskeletal: reports: Osteoarthritis Endocrine/Autoimmune: reports: Other Blood Disorders: reports: None Skin: reports: None Smoking Status: Former smoker - Surgical History General: reports: Bowel surgery, Gastric surgery, Colonoscopy Eyes Ears Nose Throat (EENT): reports: Tonsil/Adenoidectomy Gynecologic: reports: Hysterectomy Orthopedic: reports: Spine surgery Exam General: Alert, Oriented x3, Cooperative Dental: Loose/Frag, Poor dentition, Other (missing fronts) Mouth Openin Fingerbreadth Neck Mobility: Normal Mallampati classification: II Thyromental Distance: 4-6 cm Respiratory: Lungs clear, Normal breath sounds, No respiratory distress Cardiovascular: Regular rate Neurological: Normal speech Mental/Cognitive Status: Alert/Oriented X3, Normal for patient Cognitive Status: Within normal limits Plan Anesthesia Type: Total IV Consent for Procedure(s) Verified and Reviewed: Yes Code Status: Attempt Resuscitation ASA classification: 3-Severe systemic disease Is this case an emergency?: No
[2022-10-13] MEDS ORDERED: PROPOFOL 500 MG/50 ML 500 MG/50 ML VIAL ONE (06:58)
[2022-10-13] MEDS ORDERED: MIDAZOLAM 2 MG/2 ML VIAL ONE (07:03)
[2022-10-13] MEDS ORDERED: LIDOCAINE-MPF 2% 5 ML VIAL ONE (07:35)
--- NOTE | 2022-10-13 08:06 | ANESTHESIA POST OP EVALUATION ---
Anesthesia Post Eval - Post Anesthesia Eval Vitals: Last Vital Signs Temp 36.3 C L 10/13/22 07:57 Pulse 72 10/13/22 07:57 Resp 16 10/13/22 07:57 BP 98/43 L 10/13/22 07:57 Pulse Ox 96 10/13/22 07:57 O2 Flow Rate CV Function Including HR & BP: Stable Pain Control: Satisfactory Nausea & Vomiting: Negative Mental Status: Baseline Respiratory Status: Airway Patent Hydration Status: Satisfactory Anesthesia Complications: None
[2022-10-13 08:12] VITALS: BP 99/48
== END 2022-10-13 06:14 | disposition home or self-care (01) ==
LOC: SDS 06:13
PROVIDERS: ATTEND Surgery
DX: R19.5 Other fecal abnormalities (principal); K57.30 Diverticulosis of large intestine without perforation or abscess without bleeding; K59.09 Other constipation; E11.9 Type 2 diabetes mellitus without complications; I10 Essential (primary) hypertension; Z87.891 Personal history of nicotine dependence
CPT/HCPCS: 45330; J7120

== ENCOUNTER 2023-01-22 09:36 | Outpatient (CLI) | payer OTHER ==
[2023-01-22 13:05] LABS: ALBUMIN 4.1 g/dL (3.2-5.5); ALBUMIN/GLOBULIN RATIO 1.2 (1.0-2.2); ALKALINE PHOSPHATASE 65 IU/L (42-121); ALT ALANINE AMINOTRANSFERASE 21 IU/L (10-60); AST ASPARTATE AMINOTRANSFERASE 22 IU/L (10-42); BILIRUBIN,TOTAL 0.4 mg/dL (0.2-1.0); BUN - BLOOD UREA NITROGEN 22 mg/dL (6-20); CALCIUM 9.3 mg/dL (8.5-10.3); CARBON DIOXIDE - CO2 29 mmol/L (21-32); CHLORIDE 103 mmol/L (101-111); CHOLESTEROL 178 mg/dL; CREATININE 0.7 mg/dL (0.6-1.3); GFR - MDRD 82 (>89); GLUCOSE 173 mg/dL (74-104); HDL CHOLESTEROL 44 mg/dL; LDL CHOLESTEROL,CALCULATED 64 mg/dL; LDL/HDL RATIO 1.5 (<4.4); SODIUM 139 mmol/L (135-145); TOTAL PROTEIN 7.4 g/dL (6.4-8.9); TRIGLYCERIDES 350 mg/dL (48-352); VLDL CHOLESTEROL 70 mg/dL
[2023-01-22 13:16] LABS: CREATININE,URINE 115.9 mg/dL; MICROALBUM/CREATININE RATIO,UR 10.4 ug/mg (<30.0); MICROALBUMIN,URINE 1.2 mg/dL
[2023-01-22 13:37] LABS: ESTIMATED AVERAGE GLUCOSE 148 mg/dL (70-100); HEMOGLOBIN A1c% 6.8 % (4.27-6.07)
== END 2023-01-22 09:37 | disposition home or self-care (01) ==
LOC: LAB.N 09:36
PROVIDERS: ATTEND Internal Medicine
DX: E11.9 Type 2 diabetes mellitus without complications (principal); E78.2 Mixed hyperlipidemia
CPT/HCPCS: 36415; 80053; 80061; 82043; 82570; 83036; 83721

== ENCOUNTER 2023-03-19 09:42 | Outpatient (CLI) | payer OTHER ==
--- NOTE | 2023-03-19 11:15 | Ultrasound Report ---
PROCEDURE: Retroperitoneal Limited INDICATIONS: AAA TECHNIQUE: Real-time scanning was performed of the aorta, with image documentation. COMPARISON: CT abdomen pelvis 05/04/2021. FINDINGS: Exam is technically difficult due to acoustic windows and body habitus. Proximal aorta: Not visualized. Mid aorta: 1.9 x 1.6 cm. Distal aorta 3.7 x 3.5 cm. (Previously measured 3.[address] 04/2021). Right common iliac artery: 1.2 x 1.1 cm. Left common iliac artery : 1.5 x 1.2 cm. IMPRESSION: Infrarenal abdominal aortic aneurysm measuring 3.7 cm. Not significant changed. Recommend follow-up aortic imaging and 2 years. Reviewed by: Alexy Arnett MD on 03/19/2023 11:13 AM PDT Approved by: Alexy Arnett MD on 03/19/2023 11:13 AM PDT Station ID: [id number]
--- NOTE | 2023-03-19 16:21 | CT Report ---
PROCEDURE: CHEST WO INDICATIONS: LEFT PULMONARY NODULE TECHNIQUE: Noncontrast 1mm axial images were acquired from the pulmonary apices to the posterior costophrenic an gles. Axial 5 mm soft tissue kernel reconstructions were performed as well as 8 mm axial MIP and cor onal and sagittal 5 mm reformations. For radiation dose reduction, the following was used: automate d exposure control, adjustment of mA and/or kV according to patient size. COMPARISON: CT chest 03/10/2022, 02/19/2020. FINDINGS: Image quality: Excellent. Lungs and pleura: No consolidation. No pleural effusions. No pneumothorax. A few pulmonary nodules which are unchanged since 02/19/2020. -Left upper lobe 0.5 cm, (3/57), unchanged. -Left lower lobe subpleural 0.7 cm, (3/181), unchanged. No new or enlarging pulmonary nodules. Mediastinum: Heart size is normal. Moderate to severe coronary artery calcifications. No pericardial effusion. No large vessel abnormality. No mediastinal adenopathy by size criteria. Chest wall and lower neck: Thyroid is unremarkable. No axillary or supraclavicular adenopathy by size . Bones: No aggressive osseous abnormality. Upper Abdomen: Hepatic steatosis. Ventral abdominal wall hernia containing a portion of the colon. Ga llstones. Aortic ectasia. IMPRESSION: No new or enlarging pulmonary nodules. Left lower lobe subpleural pulmonary nodule measuring 0.7 cm is unchanged since 2019. Hepatic steatosis. Gallstones. Ventral abdominal wall hernia. Aortic ectasia. Reviewed by: Alexy Arnett MD on 03/19/2023 4:20 PM PDT Approved by: Alexy Arnett MD on 03/19/2023 4:20 PM PDT Station ID: [id number]
== END 2023-03-19 09:43 | disposition home or self-care (01) ==
LOC: DI 09:42
PROVIDERS: ATTEND Internal Medicine
DX: R91.8 Other nonspecific abnormal finding of lung field (principal); I71.40 Abdominal aortic aneurysm, without rupture, unspecified; K76.0 Fatty (change of) liver, not elsewhere classified; K80.20 Calculus of gallbladder without cholecystitis without obstruction; K43.9 Ventral hernia without obstruction or gangrene